=== PATIENT | female | born 1980 | race Caucasian/White ===

== ENCOUNTER → 2017-03-16 | Outpatient (CLI) | payer BC ==
--- NOTE | 2017-03-16 15:15 | KCIC ---
Left upper extremity Doppler ultrasound History: Coldness, numbness, tingling sensation in hands and feet. Hand cramping. Technique: Grayscale, color Doppler and spectral waveform analysis is used. Findings: No evidence of intraluminal thrombus of the internal jugular vein, subclavian vein, axillary vein and brachial vein. Radial and ulnar veins are patent. Cephalic and basilic veins are patent. Conclusion: No evidence of intraluminal thrombus. Electronically signed by: Jose L Salmon MD (03/16/2017 3:11 PM)
== END | disposition home or self-care (01) ==
LOC: KCIC US 14:27
PROVIDERS: ATTEND Family Medicine
DX: R25.2 Cramp and spasm (principal); R20.0 Anesthesia of skin; R20.2 Paresthesia of skin
CPT/HCPCS: 93971